=== PATIENT | male | born 1960 | race Caucasian/White ===

== ENCOUNTER 2016-03-09 01:02 | Emergency (ER) | payer SELFPAY ==
--- NOTE | 2016-03-09 02:20 | ER Document Report ---
ED GI/ - General Chief Complaint: Abdominal Pain Stated Complaint: ABDOMINAL PAIN Time seen by provider: 02:10 Notes: Patient is a 55-year-old male that comes emergency department for chief complaint of abdominal protrusion in his midabdomen. Patient states he was lifting a box a few days ago when he noticed it, he states his friend side tonight and called EMS to bring him here. Patient states he does not want to be here. Patient denies any abdominal pain, nausea or vomiting, fever. Patient denies any daily medications, denies any surgeries, denies any known medical problems. He smokes. TRAVEL OUTSIDE OF THE [place] IN LAST 30 DAYS: No Past Medical History - General Information source: Patient - Social History Smoking Status: Current Every Day Smoker Frequency of alcohol use: Social Drug Abuse: Marijuana Lives with: Alone Family History: Reviewed & Not Pertinent Patient has suicidal ideation: No Patient has homicidal ideation: No - Medical History Medical History: Negative Renal/ Medical History: Denies: Hx Peritoneal Dialysis Surgical Hx: Negative - Immunizations Immunizations up to date: Yes Hx Diphtheria, Pertussis, Tetanus Vaccination: Yes Review of Systems - Review of Systems Constitutional: No symptoms reported EENT: No symptoms reported Cardiovascular: No symptoms reported Respiratory: No symptoms reported Gastrointestinal: See HPI Genitourinary: No symptoms reported Male Genitourinary: No symptoms reported Musculoskeletal: No symptoms reported Skin: No symptoms reported Hematologic/Lymphatic: No symptoms reported Neurological/Psychological: No symptoms reported Physical Exam - Vital signs Vitals: Temp Pulse Resp BP Pulse Ox 97.5 F 74 16 100/63 97 03/09/16 01:13 03/09/16 01:13 03/09/16 01:13 03/09/16 01:13 03/09/16 01:13 Interpretation: Normal - General General appearance: Appears well, Alert In distress: None - HEENT Head: Normocephalic, Atraumatic Eyes: Normal Pupils: PERRL - Respiratory Respiratory status: No respiratory distress Chest status: Nontender Breath sounds: Normal. No: Decreased air movement Chest palpation: Normal - Cardiovascular Rhythm: Regular Heart sounds: Normal auscultation Murmur: No - Abdominal Tenderness: Other - Umbilical hernia noted, nontender, easily reducible, abdomen completely soft benign and unremarkable otherwise - Back Back: Normal, Nontender - Extremities General upper extremity: Normal inspection, Nontender, Normal color, Normal ROM , Normal temperature General lower extremity: Normal inspection, Nontender, Normal color, Normal ROM , Normal temperature, Normal weight bearing. No: Kary's sign - Neurological Neuro grossly intact: Yes Cognition: Normal Orientation: AAOx4 [place] Coma Scale Eye Opening: Spontaneous [place] Coma Scale Verbal: Oriented [place] Coma Scale Motor: Obeys Commands Wes Coma Scale Total: 15 Speech: Normal Motor strength normal: LUE, RUE, LLE, RLE Sensory: Normal - Psychological Associated symptoms: Normal affect, Normal mood - Skin Skin Temperature: Warm Skin Moisture: Dry Skin Color: Normal Course - Re-evaluation Re-evalutation: Patient with umbilical hernia on examination, nontender, patient educated on this, discussed in detail, patient referred to surgical clinic. Discussed return precautions. Patient states understanding and agreement. - Vital Signs Vital signs: Temp Pulse Resp BP Pulse Ox 97.5 F 83 18 118/69 96 03/09/16 02:24 03/09/16 02:24 03/09/16 02:24 03/09/16 02:24 03/09/16 02:24 Discharge - Discharge Clinical Impression: Umbilical hernia Qualifiers: Obstruction and gangrene presence: without obstruction or gangrene Qualified Code(s): K42.9 - Umbilical hernia without obstruction or gangrene Condition: Stable Disposition: HOME, SELF-CARE Additional Instructions: By examination you have an umbilical hernia. Please follow-up with the surgical clinic referral, this needs to be repaired. Please return the emergency department for any concerning or worsening symptoms including severe abdominal pain, vomiting, fever, etc. Referrals: [facility] [Provider Group] - Follow up in 1 week
[2016-03-09 02:31] VITALS: BP 118/69
== END 2016-03-09 02:24 | disposition home or self-care (01) ==
LOC: ER 01:02
DX: K42.9 Umbilical hernia without obstruction or gangrene (principal); F17.200 Nicotine dependence, unspecified, uncomplicated
CPT/HCPCS: 99283

== ENCOUNTER 2017-04-22 12:51 | Emergency (ER) | payer SELFPAY ==
[2017-04-22] MEDS ORDERED: ASPIRIN 81 MG TABLET, CHEWABLE PO ONE (13:54)
--- NOTE | 2017-04-22 13:55 | ER Document Report ---
ED Medical Screen (RME) - General Chief Complaint: Chest Pain Stated Complaint: CHEST PAIN Time Seen by Provider: 04/22/17 13:53 Notes: Patient is experiencing chest pains this morning. EMS was called. They gave him one sublingual nitroglycerin and aspirin and he says his pain has gone now. Denies shortness of breath. Admits to drinking heavily. Smokes. No history of any other medical conditions and on no regular prescription medicines. TRAVEL OUTSIDE OF THE [place] IN LAST 30 DAYS: No - Related Data Allergies/Adverse Reactions: No Known Allergies Allergy (Verified 04/22/17 12:53) Past Medical History - Social History Frequency of alcohol use: Heavy Drug Abuse: None Renal/ Medical History: Denies: Hx Peritoneal Dialysis Past Surgical History: Reports: Hx Orthopedic Surgery - Immunizations Immunizations up to date: Yes Hx Diphtheria, Pertussis, Tetanus Vaccination: Yes Physical Exam - Vital signs Vitals: Temp Pulse Resp BP Pulse Ox 97.9 F 86 22 H 127/77 H 94 04/22/17 13:04 04/22/17 13:04 04/22/17 13:04 04/22/17 13:04 04/22/17 13:04 Course - Vital Signs Vital signs: Temp Pulse Resp BP Pulse Ox 97.9 F 86 22 H 127/77 H 94 04/22/17 13:04 04/22/17 13:04 04/22/17 13:04 04/22/17 13:04 04/22/17 13:04
[2017-04-22 14:45] LABS: ABSOLUTE LYMPHOCYTES (AUTO) 0.9 10^3/uL (0.5-4.7); ABSOLUTE MONOCYTES (AUTO) 0.4 10^3/uL (0.1-1.4); ABSOLUTE NEUT (AUTO) 3.1 10^3/uL (1.7-8.2); BASOPHILS % (AUTO) 0.6 % (0-2); EOSINOPHILS % (AUTO) 0.6 % (0-6); HEMATOCRIT 41.1 % (37.9-51.0); LYMPHOCYTES % (AUTO) 21.1 % (13-45); MEAN CORPUSCULAR HEMOGLOBIN 31.4 pg (27.0-33.4); MEAN CORPUSCULAR HGB CONC 34.1 g/dL (32.0-36.0); MEAN CORPUSCULAR VOLUME 92 fl (80-97); MONOCYTES % (AUTO) 8.1 % (3-13); PLATELET COUNT 215 10^3/uL (150-450); RED BLOOD COUNT 4.47 10^6/uL (4.35-5.55); RED CELL DISTRIBUTION WIDTH 14.4 % (11.5-14.0); SEGMENTED NEUTROPHILS % (AUTO) 69.6 % (42-78); TOTAL CELLS COUNTED % (AUTO) 100 %; WHITE BLOOD COUNT 4.4 10^3/uL (4.0-10.5)
--- NOTE | 2017-04-22 14:45 | ER Document Report ---
ED Cardiac - General Chief Complaint: Chest Pain Stated Complaint: CHEST PAIN Time Seen by Provider: 04/22/17 13:53 Information source: Patient Notes: Patient is a 56-year-old male who states around 2-3 hours prior to arrival he had some substernal chest "pressure". He states he had a little diaphoresis without nausea, vomiting, fevers, shortness of breath, calf pain, leg swelling. No recent trips or travel. Patient does smoke and does admit to smoking marijuana occasionally. Patient denies any cocaine abuse. Patient denies a history of chest pain. Patient states he is currently chest pain-free. Patient does admit this Monday afternoon to drinking some alcohol with some friends when the chest pain started. Patient denies all medical history except for an umbilical hernia in his past. He denies any abdominal pain at this time. TRAVEL OUTSIDE OF THE [place] IN LAST 30 DAYS: No - HPI Patient complains to provider of: Chest pain Is the pain a: New problem Chest pain location: Other - See above Quality of pain: Other - See above Chest pain radiation location: None Severity now: None Severity at worst: Mild Pain level currently: Denies Chest pain precipitating factors: At Rest Cardiac risk factors: None Positive cardiac history: No Associated symptoms: Other - See above Exacerbated by: Denies Relieved by: Nothing Similar symptoms previously: No Recently seen / treated by doctor: No - Related Data Allergies/Adverse Reactions: No Known Allergies Allergy (Verified 04/22/17 12:53) Past Medical History - General Information source: Patient - Social History Smoking Status: Current Every Day Smoker Cigarette use (# per day): Yes Chew tobacco use (# tins/day): No Smoking Education Provided: No Frequency of alcohol use: Heavy Drug Abuse: None Family History: Reviewed & Not Pertinent Patient has suicidal ideation: No Patient has homicidal ideation: No Renal/ Medical History: Denies: Hx Peritoneal Dialysis Past Surgical History: Reports: Hx Orthopedic Surgery - Immunizations Immunizations up to date: Yes Hx Diphtheria, Pertussis, Tetanus Vaccination: Yes Review of Systems - Review of Systems Constitutional: denies: Fever EENT: denies: Eye discharge, Nose discharge Cardiovascular: denies: Palpitations, Heart racing, Dizziness Respiratory: denies: Short of breath Gastrointestinal: denies: Vomiting Genitourinary: denies: Dysuria Musculoskeletal: denies: Leg swelling Skin: Other - no hives. denies: Rash Neurological/Psychological: Other - no slurred speech -: Yes All other systems reviewed and negative Physical Exam - Vital signs Vitals: Temp Pulse Resp BP Pulse Ox 97.9 F 86 22 H 127/77 H 94 04/22/17 13:04 04/22/17 13:04 04/22/17 13:04 04/22/17 13:04 04/22/17 13:04 Notes: Reviewed vital signs and nursing note as charted by RN. CONSTITUTIONAL: Alert and oriented and responds appropriately to questions. Well -appearing; well-nourished HEAD: Normocephalic; atraumatic EYES: PERRL ENT: Normal nose; no rhinorrhea; moist mucous membranes NECK: Supple without meningismus; non-tender CARD: Regular rate and rhythm; no murmurs RESP: Normal chest excursion without splinting or tachypnea; breath sounds clear and equal bilaterally ABD/GI: Normal bowel sounds; non-distended; soft, non-tender BACK: The back appears normal and is non-tender to palpation EXT: Normal ROM in all joints; non-tender to palpation; no edema SKIN: No acute lesions noted NEURO: Moves all extremities equally; Motor and sensory function intact PSYCH: The patient's mood and manner are appropriate. Grooming and personal hygiene are appropriate. Course - Re-evaluation Re-evalutation: 04/22/17 14:49 Given the history and physical examination we will obtain basic labs, cardiac labs, x-ray of the chest, and place an inch of Nitropaste to the chest. Given the patient has had no shortness of breath, no radiation to the back, currently pain-free, I do believe pulmonary embolism and aortic dissection to be unlikely. EKG shows a heart of 82, normal sinus rhythm, normal axis, no obvious ST elevation or depression. 04/22/17 15:48 Cardiac labs and blood alcohol level as recorded. Patient still denies any pain. Patient is walking without difficulty. He was oriented 4. Chest x-ray shows normal heart, normal mediastinum, no fractures, normal lung lima, no pneumothorax. Given the history and physical, I do not believe that pulmonary embolism or aortic dissection is likely. I do believe that the patient would benefit from possible observation, repeat troponins, and may be a stress test. Patient adamantly refuses this. He states he feels fine and would like to go home. I have explained to him in the presence of his significant other the seriousness of his possible medical condition causing permanent disability and . I have explained that even though he is chest pain-free he may have a significant blockage in his heart. Patient understands this. He is oriented 4 with no gait instability despite his intoxication. Therefore, I do not believe I am able to hold the patient against his wishes. Patient refuses also a repeat 3 hour troponin that I have explained can be helpful. Patient has been invited to return at any time that he would like for further evaluation and assessment. I have provided outpatient cardiology follow-up. - Vital Signs Vital signs: Temp Pulse Resp BP Pulse Ox 97.9 F 86 22 H 127/77 H 97 04/22/17 13:04 04/22/17 13:04 04/22/17 13:04 04/22/17 13:04 04/22/17 15:00 - Laboratory Result Diagrams: 04/22/17 14:18 04/22/17 14:18 Laboratory results interpreted by me: 04/22/17 04/22/17 14:18 14:18 RDW 14.4 H Sodium 145.1 H AST 117 H Creatine Kinase 192 H Serum Alcohol 363 H* Discharge - Discharge Clinical Impression: Chest pain Qualifiers: Chest pain type: unspecified Qualified Code(s): R07.9 - Chest pain, unspecified Alcohol intoxication Qualifiers: Complication of substance-induced condition: with unspecified complication Qualified Code(s): F10.929 - Alcohol use, unspecified with intoxication, unspecified Condition: Fair Disposition: AGAINST MEDICAL ADVICE Additional Instructions: Come back at any time that you would like for further evaluation and admission for possible stress test. Please make sure that she follow-up with your primary doctor as well as the special events fundraiser that I have provided you. Please make sure you attempt to refrain from drinking and take a 81 mg aspirin a day Referrals: NITA GONZALEZ MD [EMERITUS] - Follow up as needed
[2017-04-22] MEDS ORDERED: NITROGLYCERIN 2% OINTMENT 1 GM PACKET TP ONE (14:50)
--- NOTE | 2017-04-22 14:58 | RADIOLOGY REPORT (SQ) ---
EXAM DESCRIPTION: CHEST SINGLE VIEW COMPLETED DATE/TIME: 04/22/2017 2:36 pm REASON FOR STUDY: Chest pain COMPARISON: None. EXAM PARAMETERS: NUMBER OF VIEWS: One view. TECHNIQUE: Single frontal radiographic view of the chest acquired. RADIATION DOSE: NA LIMITATIONS: None. FINDINGS: LUNGS AND PLEURA: No opacities, masses or pneumothorax. No pleural effusion. MEDIASTINUM AND HILAR STRUCTURES: No masses. Contour normal. HEART AND VASCULAR STRUCTURES: Heart normal in size. Normal vasculature. BONES: No acute findings. HARDWARE: None in the chest. OTHER: No other significant finding. IMPRESSION: NO ACUTE RADIOGRAPHIC FINDING IN THE CHEST. TECHNICAL DOCUMENTATION: JOB ID: [id number] [employer]- All Rights Reserved Reading location - IP/workstation name: [email or web address]
[2017-04-22 15:03] LABS: ALANINE AMINOTRANSFERASE 66 U/L (21-72); ALBUMIN 4.5 g/dL (3.5-5.0); ALKALINE PHOSPHATASE 75 U/L (38-126); ANION GAP 13 (5-19); ASPARTATE AMINO TRANSFERASE 117 U/L (17-59); BILIRUBIN,DIRECT 0.1 mg/dL (0.0-0.4); BILIRUBIN,TOTAL 0.2 mg/dL (0.2-1.3); BLOOD UREA NITROGEN 9 mg/dL (7-20); CALCIUM 8.8 mg/dL (8.4-10.2); CARBON DIOXIDE 27 mmol/L (22-30); CHLORIDE 105 mmol/L (98-107); CREATINE KINASE 192 U/L (55-170); GLUCOSE 91 mg/dL (75-110); POTASSIUM 3.8 mmol/L (3.6-5.0); SODIUM 145.1 mmol/L (137-145); TOTAL PROTEIN 7.3 g/dL (6.3-8.2)
[2017-04-22 15:16] LABS: ALCOHOL 363 mg/dL (NONE DETECTED)
[2017-04-22 15:17] LABS: TROPONIN I < 0.012 ng/mL
[2017-04-22 16:05] VITALS: BP 125/92
--- NOTE | 2017-04-22 17:56 | EKG REPORT ---
SEVERITY:- ABNORMAL ECG - SINUS RHYTHM NONSPECIFIC INTRAVENTRICULAR CONDUCTION DELAY ABNRM R PROG, CONSIDER ASMI OR LEAD PLACEMENT : Confirmed by: Tremayne Escalona MD 22-Apr-2017 17:56:33
== END 2017-04-22 15:59 | disposition left against medical advice (07) ==
LOC: ER 12:51
DX: R07.89 Other chest pain (principal); R61 Generalized hyperhidrosis; F17.210 Nicotine dependence, cigarettes, uncomplicated; F10.129 Alcohol abuse with intoxication, unspecified; Y90.8 Blood alcohol level of 240 mg/100 ml or more
CPT/HCPCS: 36415; 71045; 80053; 80307; 82550; 82553; 84484; 85025; 93005; 93010; 99285

== ENCOUNTER 2017-06-01 07:23 | Emergency (ER) | payer SELFPAY ==
--- NOTE | 2017-06-01 07:40 | ER Document Report ---
ED Substance Abuse / Acc. OD - General Chief Complaint: ETOH Abuse Stated Complaint: POSSIBLE ETOH Time Seen by Provider: 06/01/17 07:29 Mode of Arrival: Medic Information source: Patient TRAVEL OUTSIDE OF THE [place] IN LAST 30 DAYS: No - HPI Patient complains to provider of: Alcohol abuse, Other - wants rehab Notes: Patient is here with complaints of wanting alcohol rehab. Patient states that he drinks a few cases of beer most days. He drank all night last night, fell asleep and woke up at 4 AM and started drinking beer again. He has had 4-6 beers since 4 AM. He is having no symptoms of withdrawal. No chest pain or shortness of breath. No abdominal pain. No nausea, vomiting, diarrhea. He denies any drug use. He denies any homicidal or suicidal ideation. He is here to try to get into rehab to help him stop drinking. He denies any headache, blurred vision, numbness, tingling, weakness. No abdominal pain. No chest pain or shortness of breath. - Related Data Allergies/Adverse Reactions: No Known Allergies Allergy (Verified 04/22/17 12:53) Past Medical History - Social History Smoking Status: Current Every Day Smoker Family History: Reviewed & Not Pertinent Renal/ Medical History: Denies: Hx Peritoneal Dialysis Past Surgical History: Reports: Hx Orthopedic Surgery - Immunizations Immunizations up to date: Yes Hx Diphtheria, Pertussis, Tetanus Vaccination: Yes Review of Systems - Review of Systems -: Yes All other systems reviewed and negative Physical Exam - Vital signs Vitals: Temp Pulse Resp BP Pulse Ox 97.7 F 99 18 139/96 H 94 06/01/17 07:31 06/01/17 07:31 06/01/17 07:31 06/01/17 07:31 06/01/17 07:31 - Notes Notes: GENERAL: alert, cooperative, nontoxic, no distress. HEAD: normocephalic, atraumatic EYES: conjunctiva pink without discharge, no external redness or swelling. EARS: no external swelling, no external redness NOSE: atraumatic, no external swelling MOUTH/THROAT: mucous membranes moist and pink, posterior pharynx without erythema, swelling, exudate. No trismus or drooling. NECK: soft, supple, full range of motion, no meningismus. CHEST: no distress, lungs clear and equal throughout. No wheezing, rales, rhonchi. CARDIAC: regular rate and rhythm, no murmur, normal capillary refill, normal pulses. No peripheral edema noted. ABDOMEN: Soft, nontender. No rebound tenderness or guarding. BACK: full range of motion, no CVA tenderness. EXTREMITIES: full range of motion of all extremities. No redness, no swelling. NEURO: alert and oriented x 3, no focal deficits, full range of motion of all extremities. PYSCH: appropriate mood, affect. Patient is cooperative. No suicidal or homicidal ideation. SKIN: pink, warm, dry, no rash. Course - Re-evaluation Re-evalutation: 06/01/17 14:43 Patient is nontoxic appearing with stable vitals. The patient has a history of alcoholism. Comes by EMS today stating that he would like to go to rehab. He states that he would like to stop drinking. He denies any homicidal or suicidal ideation. He has a completely benign exam with no shaking or signs of withdrawal. His lab work is unremarkable aside from a mild elevation of his AST and ALT. Alcohol level 336. Drug screen negative. Patient was in the emergency department for several hours and was seen and evaluated by psych social workers. He was given multiple resources. They are going to make a phone call at [facility] for an phone interview to send the patient to [place] for a two-year inpatient rehab. Apparently the patient left without his discharge paperwork but he was given resources by psych social work. Patient did not tell the staff or myself that he was leaving. Nursing staff went into his room and noticed that his gown was on the bed and he had left. - Vital Signs Vital signs: Temp Pulse Resp BP Pulse Ox 97.5 F 71 16 130/86 H 96 06/01/17 12:54 06/01/17 12:54 06/01/17 12:54 06/01/17 12:54 06/01/17 12:54 - Laboratory Result Diagrams: 06/01/17 08:00 06/01/17 08:00 Laboratory results interpreted by me: 06/01/17 06/01/17 08:00 08:00 RDW 14.3 H Sodium 148.0 H Chloride 108 H AST 153 H ALT 101 H Salicylates < 1.0 L Acetaminophen < 10 L Serum Alcohol 334 H* - EKG Interpretation by Me EKG shows normal: Sinus rhythm, [place], Intervals, QRS Complexes, ST-T Waves Rate: Normal When compared to previous EKG there are: No significant change Discharge - Discharge Clinical Impression: Alcohol abuse Condition: Stable Disposition: ELOPED
[2017-06-01 08:12] LABS: ABSOLUTE EOSINOPHILS # (AUTO) 0.1 10^3/uL (0.0-0.6); ABSOLUTE LYMPHOCYTES (AUTO) 1.3 10^3/uL (0.5-4.7); ABSOLUTE MONOCYTES (AUTO) 0.6 10^3/uL (0.1-1.4); ABSOLUTE NEUT (AUTO) 5.1 10^3/uL (1.7-8.2); BASOPHILS % (AUTO) 0.6 % (0-2); EOSINOPHILS % (AUTO) 1.7 % (0-6); HEMATOCRIT 44.1 % (37.9-51.0); HEMOGLOBIN 14.8 g/dL (13.5-17.0); LYMPHOCYTES % (AUTO) 18.5 % (13-45); MEAN CORPUSCULAR HEMOGLOBIN 31.8 pg (27.0-33.4); MEAN CORPUSCULAR HGB CONC 33.7 g/dL (32.0-36.0); MEAN CORPUSCULAR VOLUME 95 fl (80-97); MONOCYTES % (AUTO) 8.8 % (3-13); PLATELET COUNT 273 10^3/uL (150-450); RED BLOOD COUNT 4.67 10^6/uL (4.35-5.55); RED CELL DISTRIBUTION WIDTH 14.3 % (11.5-14.0); SEGMENTED NEUTROPHILS % (AUTO) 70.4 % (42-78); TOTAL CELLS COUNTED % (AUTO) 100 %; WHITE BLOOD COUNT 7.2 10^3/uL (4.0-10.5)
[2017-06-01 08:27] LABS: ALANINE AMINOTRANSFERASE 101 U/L (21-72); ALBUMIN 4.3 g/dL (3.5-5.0); ALKALINE PHOSPHATASE 91 U/L (38-126); ANION GAP 15 (5-19); ASPARTATE AMINO TRANSFERASE 153 U/L (17-59); BILIRUBIN,DIRECT 0.3 mg/dL (0.0-0.4); BILIRUBIN,TOTAL 0.3 mg/dL (0.2-1.3); BLOOD UREA NITROGEN 11 mg/dL (7-20); CALCIUM 9.2 mg/dL (8.4-10.2); CARBON DIOXIDE 25 mmol/L (22-30); CHLORIDE 108 mmol/L (98-107); GLUCOSE 90 mg/dL (75-110); POTASSIUM 3.9 mmol/L (3.6-5.0); TOTAL PROTEIN 7.8 g/dL (6.3-8.2)
[2017-06-01 08:32] LABS: ACETAMINOPHEN < 10 ug/mL (10-30)
[2017-06-01 08:33] LABS: SALICYLATE < 1.0 mg/dL (2.0-20.0)
[2017-06-01 08:36] LABS: ALCOHOL 334 mg/dL (NONE DETECTED)
[2017-06-01 08:56] LABS: APPEARANCE,URINE CLEAR; BILIRUBIN,URINE NEGATIVE (NEGATIVE); COLOR,URINE YELLOW; GLUCOSE, URINE NEGATIVE (NEGATIVE); KETONES,URINE NEGATIVE (NEGATIVE); LEUKOCYTE ESTERASE,URINE NEGATIVE (NEGATIVE); NITRITE,URINE NEGATIVE (NEGATIVE); PROTEIN,URINE NEGATIVE (NEGATIVE); UROBILINOGEN,URINE NEGATIVE mg/dL (<2.0)
[2017-06-01 09:03] LABS: URINE AMPHETAMINES SCREEN NEGATIVE; URINE BARBITURATES SCREEN NEGATIVE; URINE BENZODIAZEPINES SCREEN NEGATIVE; URINE COCAINE SCREEN NEGATIVE; URINE MARIJUANA (THC) SCREEN NEGATIVE; URINE METHADONE SCREEN NEGATIVE; URINE PHENCYCLIDINE SCREEN NEGATIVE
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
[2017-06-01 12:55] VITALS: BP 130/86
--- NOTE | 2017-06-01 13:57 | EKG REPORT ---
SEVERITY:- NORMAL ECG - SINUS RHYTHM : Confirmed by: Tremayne Escalona MD 01-Jun-2017 13:57:01
== END 2017-06-01 14:42 | disposition left against medical advice (07) ==
LOC: ER 07:23
DX: F10.20 Alcohol dependence, uncomplicated (principal); R94.5 Abnormal results of liver function studies; F17.200 Nicotine dependence, unspecified, uncomplicated
CPT/HCPCS: 36415; 80053; 80307; 81001; 85025; 93005; 93010; 99281

== ENCOUNTER 2018-02-24 23:38 | Emergency (ER) | payer SELFPAY ==
--- NOTE | 2018-02-25 01:39 | ER Document Report ---
HPI - HPI Patient complains to provider of: left ankle pain Time Seen by Provider: 02/25/18 01:19 Pain Level: 5 Context: Patient is a 57-year-old male that comes to the emergency department for chief complaint of left ankle pain and swelling. He states he accidentally stepped into a hole, inverted his ankle, and now he has swelling and pain. He denies falling. He has been drinking alcohol tonight but he specifically denies a fall or head injury. He denies any other areas of pain or injury. He denies any other complaints. He states he takes aspirin but denies blood thinners otherwise. - CONSTITUTIONAL Constitutional: DENIES: Fever, Chills - MUSCULOSKELETAL Musculoskeletal: REPORTS: Extremity pain - LEFT ANKLE Past Medical History - General Information source: Patient - Social History Smoking Status: Current Every Day Smoker Frequency of alcohol use: Occasional Drug Abuse: None Lives with: Family Family History: Reviewed & Not Pertinent Patient has suicidal ideation: No Patient has homicidal ideation: No Renal/ Medical History: Denies: Hx Peritoneal Dialysis Past Surgical History: Reports: Hx Orthopedic Surgery - Immunizations Immunizations up to date: Yes Hx Diphtheria, Pertussis, Tetanus Vaccination: Yes Vertical Provider Document - CONSTITUTIONAL General Appearance: WD/WN, No Apparent Distress - INFECTION CONTROL TRAVEL OUTSIDE OF THE [place] IN LAST 30 DAYS: No - HEENT HEENT: Atraumatic, Normal ENT Exam, Normocephalic - NECK Neck: Normal Inspection - RESPIRATORY Respiratory: Breath Sounds Normal, No Respiratory Distress - CARDIOVASCULAR Cardiovascular: Regular Rate, Regular Rhythm - GI/ABDOMEN Gastrointestinal: Abdomen Soft, Abdomen Non-Tender - BACK Back: Normal Inspection - MUSCULOSKELETAL/EXTREMETIES Musculoskeletal/Extremeties: Tender - Left ankle with soft tissue swelling awais cially laterally. Foot exam unremarkable. Normal distal neurovascular exam. Normal knee, hip exam. Normal extremity exam is otherwise. - NEURO Level of Consciousness: Awake, Alert, Appropriate Motor/Sensory: No Motor Deficit, No Sensory Deficit - DERM Integumentary: Warm, Dry, No Rash Course - Re-evaluation Re-evalutation: Left distal fibula fracture. Minimal displacement. Normal distal neurovascular exam. No other signs of injury noted on exam, no other reported symptoms. Discussed orthopedic follow-up and return precautions. Placed in splint. Patient states understanding and agreement. - Vital Signs Vital signs: Temp Pulse Resp BP Pulse Ox 97.6 F 97 112/66 96 02/25/18 00:05 02/25/18 00:05 02/25/18 00:05 02/25/18 00:05 Procedures - Immobilization Left ankle Pre-Proc Neuro Vasc Exam: Normal Immobilizer type: Posterior ankle Performed by: PCT Post-Proc Neuro Vasc Exam: Normal Alignment checked and good: Yes Discharge - Discharge Clinical Impression: Closed left ankle fracture Qualifiers: Encounter type: initial encounter Qualified Code(s): S82.892A - Other fracture of left lower leg, initial encounter for closed fracture Fracture of distal fibula Qualifiers: Encounter type: initial encounter Fracture type: closed Fracture morphology: unspecified fracture morphology Laterality: left Qualified Code(s): S82.832A - Other fracture of upper and lower end of left fibula, initial encounter for closed fracture Condition: Stable Disposition: HOME, SELF-CARE Additional Instructions: You have a fracture of the bone called the fibula at the ankle joint in the left leg. Wear the splint, use the crutches, call and then follow-up with the orthopedics referral for additional management of this broken bone. Take pain medication only if needed, do not combine with alcohol or sedating medication. Do not drive while taking. Return for any concerning or worsening symptoms including severe swelling or pain. Prescriptions: Morphine Sulfate [Morphine Ir 15 Mg Tablet] 15 mg PO TID PRN #12 tablet PRN Reason: Referrals: MIGUELITO DOMÍNGUEZ MD [ACTIVE STAFF] - Follow up in 3-5 days
--- NOTE | 2018-02-25 02:10 | RADIOLOGY REPORT (SQ) ---
CLINICAL HISTORY: ankle injury, pain COMPARISON: None. 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 Joint spaces are preserved. There is moderate lateral soft tissue swelling. IMPRESSION: Distal fibular fracture.
[2018-02-25 03:09] VITALS: BP 114/87
== END 2018-02-25 03:19 | disposition home or self-care (01) ==
LOC: ER 23:38
PROC: 2W3RX1Z Immobilization of Left Lower Leg using Splint (ICD-10-PCS; principal; 2018-02-24)
DX: S82.892A Other fracture of left lower leg, initial encounter for closed fracture (principal); S82.832A Other fracture of upper and lower end of left fibula, initial encounter for closed fracture; M25.572 Pain in left ankle and joints of left foot; M79.89 Other specified soft tissue disorders; W17.2XXA Fall into hole, initial encounter; F17.200 Nicotine dependence, unspecified, uncomplicated
CPT/HCPCS: 99283

== ENCOUNTER 2018-05-26 17:27 | Emergency (ER) | payer SELFPAY ==
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
[2018-05-26 18:41] LABS: ABSOLUTE EOSINOPHILS # (AUTO) 0.1 10^3/uL (0.0-0.6); ABSOLUTE LYMPHOCYTES (AUTO) 1.1 10^3/uL (0.5-4.7); ABSOLUTE MONOCYTES (AUTO) 0.5 10^3/uL (0.1-1.4); ABSOLUTE NEUT (AUTO) 4.5 10^3/uL (1.7-8.2); BASOPHILS % (AUTO) 0.5 % (0-2); EOSINOPHILS % (AUTO) 1.3 % (0-6); HEMATOCRIT 33.7 % (37.9-51.0); HEMOGLOBIN 11.5 g/dL (13.5-17.0); LYMPHOCYTES % (AUTO) 17.4 % (13-45); MEAN CORPUSCULAR HEMOGLOBIN 32.1 pg (27.0-33.4); MEAN CORPUSCULAR VOLUME 95 fl (80-97); MONOCYTES % (AUTO) 7.8 % (3-13); PLATELET COUNT 270 10^3/uL (150-450); RED BLOOD COUNT 3.57 10^6/uL (4.35-5.55); RED CELL DISTRIBUTION WIDTH 13.5 % (11.5-14.0); TOTAL CELLS COUNTED % (AUTO) 100 %; WHITE BLOOD COUNT 6.1 10^3/uL (4.0-10.5)
[2018-05-26 18:51] LABS: APPEARANCE,URINE SLIGHTLY-CLOUDY; BILIRUBIN,URINE NEGATIVE (NEGATIVE); COLOR,URINE YELLOW; GLUCOSE, URINE NEGATIVE (NEGATIVE); KETONES,URINE NEGATIVE (NEGATIVE); LEUKOCYTE ESTERASE,URINE NEGATIVE (NEGATIVE); NITRITE,URINE NEGATIVE (NEGATIVE); PROTEIN,URINE NEGATIVE (NEGATIVE); URINE SPECIFIC GRAVITY 1.016; UROBILINOGEN,URINE NEGATIVE mg/dL (<2.0)
[2018-05-26 18:56] LABS: ALANINE AMINOTRANSFERASE 38 U/L (21-72); ALBUMIN 3.5 g/dL (3.5-5.0); ALKALINE PHOSPHATASE 83 U/L (38-126); ANION GAP 6 (5-19); ASPARTATE AMINO TRANSFERASE 35 U/L (17-59); BILIRUBIN,DIRECT 0.2 mg/dL (0.0-0.4); BILIRUBIN,TOTAL 0.4 mg/dL (0.2-1.3); BLOOD UREA NITROGEN 9 mg/dL (7-20); CALCIUM 9.2 mg/dL (8.4-10.2); CARBON DIOXIDE 27 mmol/L (22-30); CHLORIDE 107 mmol/L (98-107); GLUCOSE 89 mg/dL (75-110); POTASSIUM 3.7 mmol/L (3.6-5.0); SODIUM 140.3 mmol/L (137-145); TOTAL PROTEIN 6.9 g/dL (6.3-8.2)
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
[2018-05-26] MEDS ORDERED: ACETAMINOPHEN 325 MG TABLET PO ONE (21:00)
[2018-05-26] MEDS ORDERED: SUCRALFATE 1 GM TABLET PO ONE (21:00)
[2018-05-26] MEDS ORDERED: HYDROCODONE/ACETAMINOPHEN 5-325 MG (6 TAB/ER DISP) PO PRN (21:00)
[2018-05-26] MEDS ORDERED: FAMOTIDINE 20 MG TABLET PO ONE (21:00)
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
[2018-05-26 21:32] VITALS: BP 131/87
== END 2018-05-26 21:45 | disposition home or self-care (01) ==
LOC: ER 17:27
DX: R07.81 Pleurodynia (principal); K29.00 Acute gastritis without bleeding; K92.1 Melena; F17.210 Nicotine dependence, cigarettes, uncomplicated
CPT/HCPCS: 36415; 80053; 81001; 85025; 86850; 86900; 86901; 99283; 99406